=== PATIENT | female | born 1955 | race Caucasian/White ===

== ENCOUNTER 2019-05-28 09:28 | Emergency (ER) | payer OTHER ==
[2019-05-28 09:50] VITALS: BP 158/90; PULSE 60; TEMP 98.1; BMI 24.7
[2019-05-28] MEDS ORDERED: ACETAMINOPHEN 325 MG TABLET (FP) PO ONE (10:13)
[2019-05-28] MEDS ORDERED: ACETAMINOPHEN 325 MG TABLET (FP) ONE (10:19)
--- NOTE | 2019-05-28 10:28 | PDOC ---
History of Present Illness - General Chief Complaint: Pain Stated Complaint: RT JOINT PAIN Time Seen by Provider: 05/28/19 09:55 History Source: Patient Exam Limitations: Language Barrier (detonator maker ID# [id number]) Past History - Past Medical History Allergies/Adverse Reactions: Allergies Allergy/AdvReac Type Severity Reaction Status Date / Time Penicillins Allergy Rash Verified 05/28/19 09:41 Home Medications: Ambulatory Orders Clopidogrel Bisulfate [Plavix -] 75 mg PO DAILY #30 tablet 03/01/16 Cromolyn Sodium [Crolom -] 1 applic ASDIR 05/28/19 Fluticasone Prop 0.05% Nasal [Flonase -] 1 - 2 spray NS DAILY 05/28/19 Lisinopril 20 mg PO DAILY 05/28/19 Oxycodone HCl 2.5 mg PO HS PRN #12 tablet MDD 4 05/28/19 Phenytoin Na Extended [Dilantin -] 100 mg PO TID 05/28/19 Pravastatin Sodium [Pravachol] 40 mg PO HS 05/28/19 levETIRAcetam [Keppra Xr -] 750 mg PO BID 05/28/19 Cardiac Disorders: Yes HTN: Yes Seizures: Yes - Surgical History Abdominal Surgery: Yes - Immunization History Td Vaccination: Yes TDAP Vaccination: Yes Immunization Up to Date: Yes - Psycho Social/Smoking Cessation Hx Smoking Status: No Smoking History: Never smoked Number of Cigarettes Smoked Daily: 0 Hx Alcohol Use: No Drug/Substance Use Hx: No Substance Use Type: None Hx Substance Use Treatment: No *Physical Exam - Vital Signs Last Vital Signs Temp Pulse Resp BP Pulse Ox 98.1 F 60 18 158/90 98 05/28/19 09:48 05/28/19 09:48 05/28/19 09:48 05/28/19 09:48 05/28/19 09:48 - Physical Exam General Appearance: No: Apparent Distress HEENT: positive: Other (no head trauma) Neck: positive: Supple. negative: Rigid, Tender lateral, Tender midline Respiratory/Chest: positive: Other (+large area of swelling/ecchymosis along R anterior chest wall, no clavicular tenderness) Cardiovascular: positive: Regular Rhythm, Regular Rate, S1, S2. negative: Murmur Gastrointestinal/Abdominal: positive: Normal Bowel Sounds, Soft. negative: Tender, Distended, Guarding, Rebound Extremity: positive: Other (+mild TTP along R anterior shoulder, decreased ROM of R shoulder, RUE neurovascularly intact) Neurologic: positive: Fully Oriented, Alert, Normal Mood/Affect ED Treatment Course - LABORATORY CBC & Chemistry Diagram: 05/28/19 12:12 05/28/19 12:12 - RADIOLOGY Radiology Studies Ordered: Category Date Time Status CERVICAL SPINE CT W/O CONTR [CT] Stat CT Scan 05/28/19 10:[address] WITHOUT CONTRAST [CT] Stat CT Scan 05/28/19 10:[address] WITHOUT CONTRAST [CT] Stat CT Scan 05/28/19 10:14 Ordered CLAVICLE-RIGHT SIDE [RAD] Stat Radiology 05/28/19 10:13 Ordered SHOULDER-RIGHT [RAD] Stat Radiology 05/28/19 10:13 Ordered Medical Decision Making - Medical Decision Making 63 y/o F poor historian hx of HTN, HLD, seizures, CVA (on plavix) presents s/p trip and fall yesterday. Patient states she tripped in the rain last night, landing along R side with most of pain along R shoulder and R anterior chest wall. +head strike as well; unable to recall if there was LOC. States she was seen in [facility], where she was told her xrays were normal, given Tylenol and placed in sling. However, patient was not happy with care there and came here for second opinion. Denies numbness/tingling of extremities, sob, vomiting, visual/gait changes. 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 noted patient given copy of report and advised to f/u with her PCP re: this 05/28/19 15:03 Discharge - Discharge Information Problems reviewed: Yes Clinical Impression/Diagnosis: Clavicular fracture Qualifiers: Encounter type: initial encounter Clavicle location: sternal end Fracture type : closed Fracture alignment: nondisplaced Laterality: right Qualified Code(s): S42.017A - Nondisplaced fracture of sternal end of right clavicle, initial encounter for closed fracture Condition: Stable Disposition: HOME - Admission No - Additional Discharge Information Prescriptions: Oxycodone HCl 2.5 mg PO HS PRN #12 tablet MDD 4 PRN Reason: Severe Pain Prescription Drug Monitoring Program (I-STOP) results: I-STOP not reviewed - Follow up/Referral - Patient Discharge Instructions Patient Printed Discharge Instructions: DI for Clavicle Fracture-Adult Additional Instructions: Thank you for choosing [facility]. It was a pleasure taking care of you. You may take Tylenol 650 mg every 6 hours by mouth as needed for mild to moderate pain. Do not take more than 4000 mg of Tylenol in 1 day. For severe pain, you may take Oxycodone. Recommend taking this medication at night. This medication can make you constipated for which you may take over the counter Senna tablets as needed. This medication can also make you drowsy so please be cautious with driving or performing heavy physical work. You were also incidentally noted with dilation of your aorta. Please follow-up with your doctor regarding this. Return to the Emergency Department if your symptoms worsen or persist or have other concerning symptoms. Louise por elegir el [facility]. Fue un placer cuidar de ti. Puede kurtis Tylenol 650 mg cada 6 horas por va oral segn sea necesario para el dolor leve a moderado. No tome ms de 4000 mg de Tylenol en 1 da. Para el dolor intenso, puede kurtis oxicodona. Recomiendo kurtis britt medicamento por la noche. Britt medicamento puede provocarle estreimiento, por lo que puede kurtis tabletas Senna de venta jayla segn sea necesario. Britt medicamento tambin puede causar somnolencia, as que tenga cuidado al conducir o realizar trabajos fsicos pesados. Tambin se observ incidentalmente con dilatacin de allen aorta. Dinesh un seguimiento con allen mdico con respecto a esto. Regrese al departamento de emergencias si kellie sntomas empeoran o persisten o si tiene otros sntomas preocupantes. Print Language: MACEDONIAN - Post Discharge Activity
[2019-05-28] MEDS ORDERED: oxyCODONE HCL 5 MG TABLET PO ONE (12:26)
[2019-05-28 12:28] LABS: BASO % 0.4 % (0-2.0); EOS % 4.1 % (0-4.5); HEMATOCRIT 35.2 % (32.4-45.2); HEMOGLOBIN 11.9 GM/dL (10.7-15.3); LYMPH % 27.9 % (8-40); MCHC 33.9 g/dl (32.0-36.0); MEAN CELL VOLUME 97.5 fl (80-96); MEAN PLT VOLUME 8.1 fl (7.5-11.1); MONO % 6.7 % (3.8-10.2); NEUT % 60.9 % (42.8-82.8); PLATELET COUNT 164 K/MM3 (134-434); RBC 3.61 M/mm3 (3.60-5.2); RDW 12.4 % (11.6-15.6)
[2019-05-28] MEDS ORDERED: oxyCODONE HCL 5 MG TABLET ONE (12:30)
[2019-05-28 12:55] LABS: BLOOD UREA NITROGEN 15.9 mg/dL (7-18); CALCIUM 8.9 mg/dL (8.5-10.1); CREATININE 0.5 mg/dL (0.55-1.3); POTASSIUM 3.9 mmol/L (3.5-5.1)
== END 2019-05-28 15:24 | disposition home or self-care (01) ==
LOC: JERFT 09:28
DX: S42.017A Nondisplaced fracture of sternal end of right clavicle, initial encounter for closed fracture (principal); W01.0XXA Fall on same level from slipping, tripping and stumbling without subsequent striking against object, initial encounter; Y93.89 Activity, other specified; Y92.410 Unspecified street and highway as the place of occurrence of the external cause; I10 Essential (primary) hypertension; E78.5 Hyperlipidemia, unspecified; Z86.73 Personal history of transient ischemic attack (TIA), and cerebral infarction without residual deficits; Z79.01 Long term (current) use of anticoagulants; Z88.0 Allergy status to penicillin; R56.9 Unspecified convulsions
CPT/HCPCS: 36415; 70450-TC; 71250-TC; 71275-TC; 72125-TC; 73000-TC-RT-FY; 73030-TC-RT-FY; 80048; 85025; 99282-25

== ENCOUNTER 2020-04-11 13:55 | Emergency (ER) | payer OTHER ==
[2020-04-11 14:12] VITALS: BP 176/85; PULSE 66; TEMP 98.8; BMI 29.2
--- NOTE | 2020-04-11 15:41 | PDOC ---
History of Present Illness - General Chief Complaint: Syncope/Near Syncope Stated Complaint: BLOOD PRESSURE PROBLEM Time Seen by Provider: 04/11/20 14:35 - History of Present Illness Initial Comments: 66 YOF h/o seizures, htn, hld presents after seizure this am where she fell. Patient is unsure if she hit her head, she did lose consciousness, unsure if she felt dizzy or lightheaded prior to episode, unsure of confusion or difficulty speaking after episode. Also mentions that she is generally short of breath and had some chest pain earlier in the day which has since dissipated. She does currently feel dizzy and nauseas but denies vomiting. She denies fevers, chills, or recent sick contacts. Past History - Medical History Allergies/Adverse Reactions: Allergies Allergy/AdvReac Type Severity Reaction Status Date / Time Penicillins Allergy Rash Verified 04/11/20 14:10 Home Medications: Ambulatory Orders Clopidogrel Bisulfate [Plavix -] 75 mg PO DAILY #30 tablet 03/01/16 Cromolyn Sodium [Crolom -] 1 applic ASDIR 05/28/19 Fluticasone Prop 0.05% Nasal [Flonase -] 1 - 2 spray NS DAILY 05/28/19 Lisinopril 20 mg PO DAILY 05/28/19 Phenytoin Na Extended [Dilantin -] 100 mg PO TID 05/28/19 Pravastatin Sodium [Pravachol] 40 mg PO HS 05/28/19 levETIRAcetam [Keppra Xr -] 750 mg PO BID 05/28/19 oxyCODONE HCL [Oxycodone HCl] 2.5 mg PO HS PRN #12 tablet MDD 4 05/28/19 Levetiracetam [Keppra] 750 mg PO BID 14 Days #84 tablet 04/11/20 levETIRAcetam [Keppra -] 750 mg PO BID #180 tablet 04/11/20 Cardiac Disorders: Yes COPD: No HTN: Yes Seizures: Yes - Surgical History Abdominal Surgery: Yes - Reproductive History Is Patient Now?: No - Immunization History Td Vaccination: Yes TDAP Vaccination: Yes Immunization Up to Date: Yes - Psycho-Social/Smoking History Smoking Status: No Smoking History: Never smoked Have you smoked in the past 12 months: No Number of Cigarettes Smoked Daily: 0 Information on smoking cessation initiated: No - Substance Abuse Hx (Audit-C & DAST Scrn) How often the patient has a drink containing alcohol: Never Score: In Men: 4 or > Positive; In Women: 3 or > Positive: 0 Screen Result (Pos requires Nsg. Audit-10AR): Negative In the last yr the pt used illegal drug/Rx for NonMed reason: No Score: Yes response is considered Positive: 0 Screen Result (Positive result requires Nsg. DAST-10): Negative Review of Systems - Review of Systems Constitutional: Yes: See HPI HEENTM: Yes: See HPI Respiratory: Yes: See HPI Cardiac (ROS): Yes: See HPI ABD/GI: Yes: See HPI : Yes: See HPI Musculoskeletal: Yes: See HPI Integumentary: Yes: See HPI Neurological: Yes: See HPI Endocrine: Yes: See HPI Hematologic/Lymphatic: Yes: See HPI *Physical Exam - Vital Signs Last Vital Signs Temp Pulse Resp BP Pulse Ox 98.8 F 66 18 176/85 H 100 04/11/20 14:11 04/11/20 14:11 04/11/20 14:11 04/11/20 14:11 04/11/20 14:11 - Physical Exam General Appearance: Yes: Appropriately Dressed, Apparent Distress HEENT: positive: EOMI, OSBALDO, Normal ENT Inspection, Normal Voice Neck: positive: Trachea midline, Normal Thyroid Respiratory/Chest: positive: Lungs Clear, Normal Breath Sounds, Respiratory Distress Cardiovascular: positive: Regular Rhythm, Regular Rate, S1, S2 Integumentary: positive: Normal Color, Dry, Warm Neurologic: positive: supervisor photocomposition II-XII NML intact, Fully Oriented, Alert, Normal Mood/Affect, Normal Response, Motor Strength 5/5 ED Treatment Course - LABORATORY CBC & Chemistry Diagram: 04/11/20 15:20 04/11/20 15:20 Medical Decision Making - Medical Decision Making 64 YOF h/o seizures presents after seizure + fall - vitals wnl - neuro exam unremarkable - will do EKG, CXR, UA, CBC, CMP, magnesium, keppra levels. reassess - additional history received indicates patient has been non compliant with her keppra for 10 days - labs and imaging unremarkable - will give patient keppra in ed and rx for keppra and dc patient to follow up with Dr. Marco Lazar - Spoke with Dr. Lazar who is amenable to this plan Discharge - Discharge Information Problems reviewed: Yes Clinical Impression/Diagnosis: Syncope, Seizure - Admission No - Additional Discharge Information Prescriptions: Levetiracetam [Keppra] 750 mg PO BID 14 Days #84 tablet levETIRAcetam [Keppra -] 750 mg PO BID #180 tablet - Follow up/Referral Referrals: Marco Sanches [Primary Care Provider] - - Patient Discharge Instructions Patient Printed Discharge Instructions: DI for Seizure Disorder -- Adult Additional Instructions: Lo vieron en el hospital despus de sufrir marybel convulsin. Mencion que no haba tomado allen medicamento anticonvulsivo (keppra) en 10 smith. Recibiste laboratorios e imaginabas que ambos lala normales. Le dieron marybel prescripcin de 14 smith para allen medicamento anticonvulsivo. [place] finesse medicamento segn las indicaciones. Dinesh un seguimiento con allen mdico de atencin primaria. Regrese a la janeth de emergencias si allen condicin empeora, si sufre marybel convulsin adicional o marybel cada, o dolor en el pecho, falta de aire, nuseas, vmitos, fiebre o escalofros. You were seen in the hospital after you suffered a seizure. You mentioned that you had not taken your anti seizure medication (keppra) in 10 days. You received labs and imagining both of which were unremarkable. You were given a 14 day prescription for your anti seizure medication. Please take this medication as directed. Please follow up with your primary care physician. Please return to the ER if your condition worsens, if you suffer an additional seizure, or fall, or chest pain, shortness of breath, nausea, vomiting, fever or chills. - Post Discharge Activity
[2020-04-11] MEDS ORDERED: levETIRAcetam 500 MG/5 ML INJECTION VIAL IVPB ONE ×2 (16:25→16:55)
[2020-04-11 16:38] LABS: BASO % 0.4 % (0-2.0); EOS % 6.3 % (0-4.5); HEMATOCRIT 34.8 % (32.4-45.2); LYMPH % 28.1 % (8-40); MCH 34.2 pg (25.7-33.7); MCHC 34.4 g/dl (32.0-36.0); MEAN CELL VOLUME 99.4 fl (80-96); MEAN PLT VOLUME 8.7 fl (7.5-11.1); MONO % 6.2 % (3.8-10.2); PLATELET COUNT 138 K/MM3 (134-434); RBC 3.51 M/mm3 (3.60-5.2); RDW 12.7 % (11.6-15.6); WHITE BLOOD COUNT 4.9 K/mm3 (4.0-10.0)
[2020-04-11 16:56] LABS: INR 1.12 (0.83-1.09); PROTHROMBIN TIME (PATIENT) 13.2 SEC (9.7-13.0)
[2020-04-11 16:58] LABS: ACTIVATED PTT 21.4 SECONDS (25.2-36.5)
[2020-04-11 17:02] LABS: ALBUMIN 3.6 g/dl (3.4-5.0); ALK PHOS 93 U/L (45-117); ANION GAP 5 MMOL/L (8-16); BILIRUBIN,TOTAL 0.3 mg/dL (0.2-1); CALCIUM 8.2 mg/dL (8.5-10.1); CHLORIDE 104 mmol/L (98-107); CO2 31 mmol/L (21-32); CREATININE 0.5 mg/dL (0.55-1.3); GLUCOSE,RANDOM 92 mg/dL (74-106); MAGNESIUM 2.1 mg/dL (1.8-2.4); POTASSIUM 4.3 mmol/L (3.5-5.1); SGOT/AST 45 U/L (15-37); SGPT/ALT 22 U/L (13-61); SODIUM 140 mmol/L (136-145); TOT PROT 7.2 g/dl (6.4-8.2)
[2020-04-11] MEDS ORDERED: levETIRAcetam 500 MG TABLET (FP) PO ONE ×2 (17:40→18:07)
--- OUTSIDE RECORDS SUMMARY | 2020-04-11 18:37 | XMS ---
:1955 Author Organization [facility] Care Team Providers Name Role Phone ED STAFF PHYSICIAN, STAFF Unavailable Unavailable EMERGENCY SERVICE, X Unavailable Unavailable VISHNU AQUINO Unavailable Unavailable JOSHUA CARLSON Unavailable Unavailable TIFFANIE PARKS Unavailable Unavailable Berenice UNKNOWN PHYSICIANKAYCE Unavailable Unavailable Re-disclosure Warning The records that you are about to access may contain information from federally- assisted alcohol or drug abuse programs. If such information is present, then the following federally mandated warning applies: This information has been disclosed to you from records protected by federal confidentiality rules (42 CFR part 2). The federal rules prohibit you from making any further disclosure of this information unless further disclosure is expressly permitted by the written consent of the person to whom it pertains or as otherwise permitted by 42 CFR part 2. A general authorization for the release of medical or other information is NOT sufficient for this purpose. The Federal rules restrict any use of the information to criminally investigate or prosecute any alcohol or drug abuse patient.The records that you are about to access may contain highly sensitive health information, the redisclosure of which is protected by Article 27-F of the [facility] Public Health law. If you continue you may haveaccess to information: Regarding HIV / AIDS; Provided by facilities licensed or operated by the [facility] Office of Mental Health; or Provided by the [facility] Office for People With Developmental Disabilities. If such information is present, then the following [facility] mandated warning applies: This information has been disclosed to you from confidential records which are protected by state law. State law prohibits you from making any further disclosure of this information without the specific written consent of the person to whom it pertains, or as otherwise permitted by law. Any unauthorized further disclosure in violation of state law may result in a fine or usp sentence or both. A general authorization for the release of medical or other information is NOT sufficient authorization for further disclosure. Allergies and Adverse Reactions Type Description Substance Reaction Status Data Source(s ) Drug allergy Penicillins Penicillins [facility] Drug allergy Penicillins Penicillins [facility] Encounters Encounter Providers Location Date Indications Data Source(s ) Emergency Attender: MILES [facility] EM[facility]GENCY SERVICE, EDT Corpor ation XAdmitter: VISHNU AQUINO SEIZURE Outpatient Attender: TIFFANIE Torres 06/02/2019 11:47:0 0 AM [facility] OLYUTAAdmitter: TIFFANIE CORREA [facility] [place] MORENOReferrer: KAYCE MA PHYSICIAN Emergency Attender: STAFF ED STAFF H 05/27/2019 10:34:00 PM [facility] PHYSICIAN EDT - 05/28/2019 [facility] Center 07:08:00 AM EDT Patient discharged. Outpatient Attender: JOSHUA GONZALES 05/12/2019 08:39:00 AM [facility] JOSHUAAdmitter: JOSHUA [facility] CARLOS LEWISReferrer: JOSHAU LEWIS [facility] H 04/24/2019 06:05:00 PM [facility] EDT - 04/24/2019 Medical Center 11:40:00 PM EDT Patient discharged. Outpatient Attender: JOSHUA Torres 03/22/2019 12:38:00 PM [facility] JOSHUAAdmitter: JOSHUA [facility] Hospital[facility] CARLOS LEWISReferrer: JOSHUA LEWIS Immunizations Vaccine Date Status Description Data Source(s) Note that this vaccine 06/12/2016 [facility] Medical name has changed. See 02:58:00 PM EST Ce nter also Td (adult). It is not adsorbed. Note that this vaccine 07/22/2015 [facility] Medical name has changed. See 12:30:00 PM EST Ce nter also Td (adult). It is not adsorbed. Medications Medication Brand Start Product Dose Route Administrative Pharmacy St at Indications Reaction Description Data Name Date Form Instructions Instructions Source(s) Acetaminoph Acetam 999 UNK active Acetam inoph [place] en IVPB ( inophe 2020 mg en IVPB r Cou nty n IVPB 08:47: (adult) or Healt h ( 33 PM GT 50 kg Care EDT 1000 mg IVPB Corpora emily n Medication administered onsite 0.9% 0.9% 04/07/2020 1000 mL UNK active 0.9% [facility] NaCl IV NaCl IV 03:12:09 PM IV Give [facility] EDT 1000 mL; IV Care rate: Corporation Bolus over 30 minutes Medication administered onsite Keppra Keppra 04/07/2020 1000 UNK active Keppra Prince 500mg/5mL 500mg/5mL 03:12:09 PM mg 500 mg/5mL [facility] ( EDT (Levetiracetam) [facility] Injection Give Corpo ration 1000 mg IVPB Medication administered onsite Pravastatin pravastatin 40 completed [facility] Sodium 40 MG mg Tablet Me dical Oral Tablet [place] pravastatin 40 mg Tablet Unable to Unable to 999 UNK completed Unabl e to Prince Obtain/Drug Obtain/Drug MG Obtain /[facility]rett [facility] Names Unknown Names Unknown Names Care [facility] Phenytoin sodium phenytoin completed [facility] 100 MG Extended sodium extended Medical Release Oral 100 mg Capsule [place] Capsule phenytoin sodium extended 100 mg Capsule Metoprolol metoprolol 1 completed [facility] Tartrate 25 MG tartrate 25 mg Medical Oral Tablet TabletDirection [place] metoprolol s: 1 tablet tartrate 25 mg oral every TabletDirections twelve hours : 1 tablet oral every twelve hours Ibuprofen 600 MG ibuprofen 600 1 completed [facility] Oral Tablet mg Tablet, Me dical ibuprofen 600 mg Ordered By: Center Tablet, Ordered Ramses Edwards, By: Ramses MDDirections: 1 Edwards, tablet oral MDDirections: 1 three times a tablet oral day PRN pain three times a day PRN pain Cromolyn Sodium cromolyn 4 % completed [facility] Dax 40 MG/ML Drops [facility] Ophthalmic Center Solution cromolyn 4 % Drops clopidogrel 75 clopidogrel 75 completed [facility] MG Oral Tablet mg Tablet Medical clopidogrel 75 Cente r mg Tablet Lisinopril 20 MG lisinopril 20 completed [facility] Oral Tablet mg Tablet Med ical lisinopril [address] Tablet Levetiracetam levetiracetam completed [facility] 750 MG Oral 750 mg Tablet Medical Tablet Center levetiracetam 750 mg Tablet lamotrigine 25 lamoTRIgine 1 completed LaMICtal Dax MG Oral Tablet (LaMICtal) 25 Medical [Lamictal] mg Center lamoTRIgine TabletDirection (LaMICtal) 25 mg s: 1 tablet TabletDirections oral twice a : 1 tablet oral day twice a day fluticasone completed Ji nt Dax propionate 50 Medica l mcg/actuation Center spray,suspension Insurance Providers Payer name Policy type Policy ID Covered Covered libertarian's Policy P roxanne / Coverage libertarian ID relationship to Brush Inf ormation type brush JACOB [id number] SP [id number] ESSENTIAL PLAN 3 4 O JACOB O [id number] 01 [id number] ESSENTIALS-CO MMERCIAL JACOB [id number] SP [id number] HEALTH NON CAP O Problems, Conditions, and Diagnoses Code Display Name Description Problem Type Effective Dates Data Source(s) M25.611 Stiffness of STIFFNESS OF Diagnosis 06/02/2019 [facility] right shoulder, RIGHT SHOULDER, 11:47:00 AM [facility] Medical Center not elsewhere NOT ELSEWHERE classified CLASSIFIED M25.511 Pain in right PAIN IN RIGHT Diagnosis 06/02/2019 [facility] shoulder SHOULDER 11:47:00 AM EST Medical C enter Y99.9 Unspecified UNSPECIFIED Diagnosis 05/27/2019 [facility] external cause EXTERNAL CAUSE 10:34:00 PM EDT [facility] status STATUS Y92.[address] AND Diagnosis 05/27/[address] 10:34:00 PM EDT Med ical [place] [address] of occurrence of the external cause Y93.9 Activity, ACTIVITY, Diagnosis 05/27/2019 [facility] unspecified UNSPECIFIED 10:34:00 PM EDT Medical Center W19.XXXA Unspecified fall, UNSPECIFIED FALL, Diagnosis 05/27/2019 [facility] initial encounter INITIAL ENCOUNTER 10:34:00 PM EDT Medical Center S40.012A Contusion of left CONTUSION OF LEFT Diagnosis 05/27/2019 [facility] shoulder, initial SHOULDER, INITIAL 10:34:00 PM EDT Medical Center encounter ENCOUNTER G40.89 Other seizures OTHER SEIZURES Diagnosis 05/12/2019 [facility] 08:39:00 AM EDT Medical C enter Z53.21 Procedure and PROC/TRTMT NOT Diagnosis 04/24/2019 [facility] treatment not CRD OUT D/T PT LV 06:05:00 PM EDT [facility] Center carried out due BEF SEEN BY TH to patient CARE PROV leaving prior to being seen by health care provider Z04.89 ENCOUNTER FOR ENCOUNTER FOR Diagnosis 04/24/2019 [facility] EXAMINATION AND EXAMINATION AND 06:05:00 PM EDT [facility] Center OBSERVATION FOR OBSERVATION FOR OTH REASONS OTH REASONS Results ID Date Data Source LIPID.[id number] 04/28/2018 10:00:00 PM EDT [facility] Name Value Range Interpretation Description Data Sup porting Code Source(s) Document(s ) UNK < 100 <content Saint styleCode="[facility] d">LDL-Cholest [facility] mame Center </content>95 MG/DL<content styleCode="Marci lics"> (< 100 MG/DL)</conten t> Triglyceride < 150 <content Saint [Mass/volume] in styleCode="[facility] Serum or Plasma d">Triglycerid [facility] es Center </content>55 MG/DL<content styleCode="Marci lics"> (< 150 MG/DL)</conten t> UNK > 60 <content Saint styleCode="[facility] d">HDL- Medical Cholesterol Center </content>81 MG/DL<content styleCode="Marci lics"> (> 60 MG/DL)</conten t> Cholesterol -<200 <content Saint [Mass/volume] in styleCode="[facility] Serum or Plasma d">Cholesterol Medical </content>187 Center MG/DL<content styleCode="Marci lics"> (-<200 MG/DL)</conten t> ID Date Data Source HematologyRou.[id number] 04/28/2018 10:00:00 PM [facility] Name Value Range Interpretation Description Data Sup porting Code Source(s) Document(s ) Erythrocytes 4.0-5.1 Below low normal <content Saint [#/volume] in styleCode="Bold Dax Blood by ">Red Blood Medical Automated count Cell Count Center </content>3.61 MCUMM L<content styleCode="Ital ics"> (4.0-5.1 MCUMM)</content > Leukocytes 4.4-11.0 <content Saint [#/volume] in styleCode="Bold Dax Blood by ">White Blood Medical Automated count Cell Count Center </content>6.55 KCUMM<content styleCode="Ital ics"> (4.4-11.0 KCUMM)</content > Hemoglobin 12.3-16. Below low normal <content Saint [Mass/volume] in 0 styleCode="Bold Dax Blood ">Hemoglobin Medical </content>11.9 Center G/DL L<content styleCode="Ital ics"> (12.3-16.0 G/DL)</content> Hematocrit 36.0-46. Below low normal <content Saint [Volume 0 styleCode="Bold Dax Fraction] of ">Hematocrit Medical Blood by </content>34.0 Center Automated count % L<content styleCode="Ital ics"> (36.0-46.0 %)</content> Erythrocyte mean 26.0-34. <content Saint corpuscular 0 styleCode="Bold Dax hemoglobin ">Mean Medical [Entitic mass] Corposcular Center by Automated Hemoglobin count </content>33.0 PG<content styleCode="Ital ics"> (26.0-34.0 PG)</content> Erythrocyte 11.5-14. <content Saint distribution 5 styleCode="Bold Dax width [Ratio] by ">Red Cell Medical Automated count Distribution Center Width </content>11.8 %<content styleCode="Ital ics"> (11.5-14.5 %)</content> Platelet mean 8.0-11.0 <content Saint volume [Entitic styleCode="Bold Dax volume] in Blood ">Mean Platelet Medical by Automated Volume Center count </content>9.7 FL<content styleCode="Ital ics"> (8.0-11.0 FL)</content> Platelets 130-400 <content Saint [#/volume] in styleCode="Bold Dax Blood by ">Platelet Medical Automated count Count Center </content>177 KCUMM<content styleCode="Ital ics"> (130-400 KCUMM)</content > Erythrocyte mean 80.0-100 <content Saint corpuscular .0 styleCode="Bold Dax volume [Entitic ">Mean Medical volume] by Corpuscular Center Automated count Volume </content>94.2 FL<content styleCode="Ital ics"> (80.0-100.0 FL)</content> Erythrocyte mean 32.0-37. <content Saint corpuscular 0 styleCode="Bold Dax hemoglobin ">Mean Corpus. Medical concentration Hgb Center [Mass/volume] by Concentration Automated count (MCHC) </content>35.0 G/DL<content styleCode="Ital ics"> (32.0-37.0 G/DL)</content> UNK 0 <content Saint styleCode="Bold Dax ">Nucleated Red Medical Blood Cell Center </content>0.0 /100<content styleCode="Ital ics"> (0 /100)</content> UNK 0.0 <content Saint styleCode="Bold Dax ">Nucleated Red Medical Blood Cell Center Count </content>0.00 KCUMM<content styleCode="Ital ics"> (0.0 KCUMM)</content > ID Date Data Source GFR(Creatinine).[id number] 04/28/2018 10:00:00 PM EDT [facility] 0-0400 Name Value Range Interpretation Code Description Data Vernell rce(s) Supporting Document(s ) UNK > 60 <content [facility] styleCode="Bold"> Medical Cent er EGFR </content>132 GFR<content styleCode="Italic s"> (> 60 GFR)</content> ID Date Data Source Coagulation 04/28/2018 10:00:00 PM [facility] Rout.[id number] EDT Name Value Range Interpretation Description Data Sup porting Code Source(s) Document(s ) aPTT in 25.1-36. <content Saint Platelet poor 5 styleCode="Bold" Dax plasma by >Partial Medical Coagulation Thromboplastin Center assay Time </content>28.9 SEC<content styleCode="Itali cs"> (25.1-36.5 SEC)</content> UNK 9.0-13.0 <content Saint styleCode="Bold" Dax >Protime Medical </content>12.6 Center SEC<content styleCode="Itali cs"> (9.0-13.0 SEC)</content> INR in 0.80-1.2 <content Saint Platelet poor 0 styleCode="Bold" Dax plasma by >INR Medical Coagulation </content>1.11 Center assay #<content styleCode="Itali cs"> (0.80-1.20 #)</content> ID Date Data Source CardiacMarkers.[id number] 04/28/2018 10:00:00 PM EDT [facility] -0400 Name Value Range Interpretation Description Data Sup porting Code Source(s) Document(s ) Troponin 0-0.034 <content Saint I.cardiac styleCode="Bold Dax [Mass/volume ">Troponin I Medical ] in Serum </content>< Center or Plasma 0.012 NG/ML<content styleCode="Ital ics"> (0-0.034 NG/ML)</content > ID Date Data Source [facility].[id number] 04/28/2018 10:00:00 PM EDT [facility] Name Value Range Interpretation Description Data Sup porting Code Source(s) Document(s ) Sodium 137-145 <content Saint [Moles/volume] styleCode="Gloria Dax in Serum or d">Sodium Medical Plasma </content>139 Center MEQ/L<content styleCode="Marci lics"> (137-145 MEQ/L)</conten t> UNK 7-17 <content Saint styleCode="Gloria Dax d">BUN Medical </content>16 Center MG/DL<content styleCode="Marci lics"> (7-17 MG/DL)</conten t> Potassium 3.5-5.3 Below low normal <content Saint [Moles/volume] styleCode="[facility] in Serum or d">Potassium Medical Plasma </content>3.3 Center MEQ/L L<content styleCode="Marci lics"> (3.5-5.3 MEQ/L)</conten t> Glucose 74-106 <content Saint [Mass/volume] styleCode="Gloria Gutierrezs in Serum or d">Glucose Medical Plasma </content>100 Center MG/DL<content styleCode="Marci lics"> (74-106 MG/DL)</conten t> Chloride 98-107 <content Saint [Moles/volume] styleCode="[facility] in Serum or d">Chloride Medical Plasma </content>104 Center MEQ/L<content styleCode="Marci lics"> (98-107 MEQ/L)</conten t> Carbon 22-30 <content Saint dioxide, total styleCode="[facility] [Moles/volume] d">Carbon Medical in Serum or Dioxide Center Plasma </content>28 MEQ/L<content styleCode="Marci lics"> (22-30 MEQ/L)</conten t> Creatinine 0.5-1.3 <content Saint [Mass/volume] styleCode="[facility] in Serum or d">Creatinine Medical Plasma </content>0.5 Center MG/DL<content styleCode="Marci lics"> (0.5-1.3 MG/DL)</conten t> Calcium 8.4-10.2 <content Saint [Mass/volume] styleCode="[facility] in Serum or d">Calcium Medical Plasma </content>8.9 Center MG/DL<content styleCode="Marci lics"> (8.4-10.2 MG/DL)</conten t> UNK > 60 <content Saint styleCode="[facility] d">EGFR Medical </content>132 Center GFR<content styleCode="Marci lics"> (> 60 GFR)</content> ID Date Data Source Urinalysis.[id number] 04/28/2018 09:45:00 PM EDT [facility] 0 Name Value Range Interpretation Description Data Sup porting Code Source(s) Document(s ) Color of Urine YELLOW <content Saint styleCode="[facility] d">Color, Medical Urine Center </content>YELL OW <content styleCode="Marci lics"> (YELLOW )</content> UNK NEGATIVE <content Saint styleCode="Gloria Dax d">Urine Medical Bilirubin Center </content>NEGA TIVE <content styleCode="Marci lics"> (NEGATIVE )</content> Specific 1.015-1.02 Above high <content Saint gravity of 5 normal styleCode="[facility] Urine by Test d">Urine Medical strip Specific Center [place] </content>>= 1.030 H<content styleCode="Marci lics"> (1.015-1.025 )</content> UNK CLEAR <content Saint styleCode="[facility] d">Urine Medical Clarity Center </content>TRENT R <content styleCode="Marci lics"> (CLEAR )</content> Glucose NEGATIVE <content Saint [Mass/volume] styleCode="Gloria Dax in Urine by d">Urine Medical Test strip Glucose Center </content>NEGA TIVE MG/DL<content styleCode="Marci lics"> (NEGATIVE MG/DL)</conten t> Ketones NEGATIVE <content Saint [Mass/volume] styleCode="Gloria Dax in Urine by d">Urine Medical Test strip Ketone Center </content>NEGA TIVE MG/DL<content styleCode="Marci lics"> (NEGATIVE MG/DL)</conten t> Urobilinogen 0.2-1.0 <content Saint [Units/volume] styleCode="Gloria Dax in Urine by d">Urine Medical Test strip Urobilinogen Center </content>0.2 MG/DL<content styleCode="Marci lics"> (0.2-1.0 MG/DL)</conten t> Protein NEGATIVE <content Saint [Mass/volume] styleCode="Gloria Dax in Urine by d">Urine Medical Test strip Protein Center </content>NEGA TIVE MG/DL<content styleCode="Marci lics"> (NEGATIVE MG/DL)</conten t> Nitrite NEGATIVE <content Saint [Presence] in styleCode="G[facility]ia Gutierrezs Urine by Test d">Urine Medical strip Nitrite Center </content>NEGA TIVE <content styleCode="Marci lics"> (NEGATIVE )</content> Hemoglobin NEGATIVE <content Saint [Presence] in styleCode="G[facility]ia Gutierrezs Urine by Test d">Urine Blood Medical strip </content>SMAL Center L <content styleCode="Marci lics"> (NEGATIVE )</content> pH of Urine by 4.5-8.0 <content Saint Test strip styleCode="Gloria Dax d">Urine pH Medical </content>6.0 Center NM<content styleCode="Marci lics"> (4.5-8.0 NM)</content> Leukocyte NEGATIVE <content Saint esterase styleCode="[facility] Gutierrezs [Presence] in d">Urine Medical Urine by Test Leukocyte Center strip </content>NEGA TIVE <content styleCode="Marci lics"> (NEGATIVE )</content> UNK 0-3 <content Saint styleCode="Gloria Dax d">Urine Red Medical Blood Cell Center </content>0-3 HPF<content styleCode="Marci lics"> (0-3 HPF)</content> UNK 0-3 <content Saint styleCode="Gloria Dax d">Urine White Medical Blood Cell Center </content>5 - 10 HPF<content styleCode="Marci lics"> (0-3 HPF)</content> UNK NEGATIVE <content Saint styleCode="Gloria Dax d">Urine Medical Bacteria Center </content>FEW HPF<content styleCode="Marci lics"> (NEGATIVE HPF)</content> UNK NONE SEEN <content Saint styleCode="Gloria Dax d">Urine Mucus Medical </content>MODE Center RATE LPF<content styleCode="Marci lics"> (NONE SEEN LPF)</content> UNK <content Saint styleCode="Gloria Dax d">Epithelial Medical Cell Center </content>5 - 10 LPF (Reference Range: not available)<br/ > ID Date Data Source Microbiology.[id number] 04/28/2018 09:45:00 PM EDT [facility] 400 Name Value Range Interpretation Code Description Data Vernell rce(s) Supporting Document(s ) UNK <item><content [facility] styleCode="Bold">Cul Medical C enter ture Report </content>
<tabl e><tbody><tr><td>Spe cimen Number:</td><td>[id number]</td></tr><tr>< td>Sample Collection Date/Time: </td><td>04/28/2018 9:45 PM</td></tr><tr><td> Specimen Source:</td><td>URIN E</td></tr><tr><td>U rine Culture:</td><td>Col lection Plate Date: 04/28/2018 22:05 </td></tr><tr><td>Cu lture Status:</td><td>Winifred l </td></tr><tr><td>Cu lture Report:</td><td>NO FURTHER WORKUP </td></tr><tr><td>Or ganism 1:</td><td>CORYNEBAC TERIUM SPECIES </td></tr><tr><td>Or ganism 2:</td><td>COAGULASE NEGATIVE STAPHYLOCOCCUS </td></tr></tbody></ table>
<table border="2"><tbody><t r><td></td><td>1</td ><td>2</td></tr><tr> <td>Comment</td><td> </td><td></td></tr>< tr><td>Result Value</td><td>CORYNE BACTERIUM SPECIES </td><td>COAGULASE NEGATIVE STAPHYLOCOCCUS </td></tr><tr><td>Re sult Status</td><td>Final Result</td><td>Final Result</td></tr><tr> <td></td><td></td><t d></td></tr></tbody> </table></item> UNK <item><content [facility] D[facility] styleCode="Bold">Cul Medical C enter ture Status </content>
<tabl e><tbody><tr><td>Spe cimen Number:</td><td>[id number]</td></tr><tr>< td>Sample Collection Date/Time: </td><td>04/28/2018 9:45 PM</td></tr><tr><td> Specimen Source:</td><td>URIN E</td></tr><tr><td>C ulture Status:</td><td>Winifred l </td></tr><tr><td>Cu lture Report:</td><td>NO FURTHER WORKUP </td></tr><tr><td>Ur ine Culture:</td><td>Col lection Plate Date: 04/28/2018 22:05 </td></tr><tr><td>Or ganism 1:</td><td>CORYNEBAC TERIUM SPECIES </td></tr><tr><td>Or ganism 2:</td><td>COAGULASE NEGATIVE STAPHYLOCOCCUS </td></tr></tbody></ table>
<table border="2"><tbody><t r><td></td><td>1</td ><td>2</td></tr><tr> <td>Comment</td><td> </td><td></td></tr>< tr><td>Result Value</td><td>CORYNE BACTERIUM SPECIES </td><td>COAGULASE NEGATIVE STAPHYLOCOCCUS </td></tr><tr><td>Re sult Status</td><td>Final Result</td><td>Final Result</td></tr><tr> <td></td><td></td><t d></td></tr></tbody> </table></item> Procedure Social History Code Duration Value Status Description Data Source(s ) Smoking 05/27/2019 Denies Ever completed Denies Ever Smoked [facility] 11:31:00 PM EDT Smoked Medical C enter Smoking Unknown if ever completed Unknown if ever Ramone carol [facility] smoked smoked Medical Center Vital Signs ID Date Data Source UNK Name Value Range Interpretation Code Description Data Source(s) Body temperature 36.443274 36.104040 [facility] Respiratory rate 18 /min 18 /min [facility] Oxygen saturation 98 % 98 % [facility] blood [facility] by Pulse oximetry Heart rate 57 /min 57 /min [facility] Diastolic blood 75 mm[Hg] 75 mm[Hg] [facility] Systolic blood 161 mm[Hg] 161 mm[Hg] [facility] Body temperature 36.569993 36.115984 [facility] Respiratory rate 18 /min 18 /min [facility] Oxygen saturation 96 % 96 % [facility] blood [facility] by Pulse oximetry Heart rate 56 /min 56 /min [facility] Diastolic blood 90 mm[Hg] 90 mm[Hg] [facility] Systolic blood 146 mm[Hg] 146 mm[Hg] [facility] Body weight 63.586989 kg 63.552357 kg [facility] Body temperature 36.764793 36.250342 [facility] Respiratory rate 16 /min 16 /min [facility] Oxygen saturation 100 % 100 % [facility] by Pulse oximetry Heart rate 62 /min 62 /min [facility] Body height 152.725975 152.152867 cm [facility] Medical [place] Diastolic blood 89 mm[Hg] 89 mm[Hg] [facility] Systolic blood 155 mm[Hg] 155 mm[Hg] [facility] Body mass index 27.3 kg/m2 27.3 kg/m2 [facility] (BMI) [Ratio] Medical [facility] ter Body weight 66.312736 kg 66.613674 kg [facility] Measured Medical Center Body temperature 36.576424 36[address]73[address] [facility] [facility] Respiratory rate 18 /min 18 /min [facility] Oxygen saturation 98 % 98 % [facility] Stefanie osephs in Arterial blood Medical Center by Pulse oximetry Heart rate 59 /min 59 /min [facility] Body height [phone] [phone] cm [facility] Diastolic blood 91 mm[Hg] 91 mm[Hg] [facility] pressure Medical Center Systolic blood 200 mm[Hg] 200 mm[Hg] [facility] Body mass index 25.0 kg/m2 25.0 kg/m2 [facility] (BMI) [Ratio] Medical [facility] Patient Treatment Plan of Care Planned Activity Planned Date Details Description Data Source (s) Acetaminophen IVPB ( 04/07/2020 [facility] 08:47:33 PM Logic Instrument Phanfare Keppra 500mg/5mL (L 04/07/2020 [facility] 03:12:09 PM DocDep 0.9% NaCl IV 04/07/2020 [facility] nty 03:12:09 PM DocDep Ibuprofen 600 MG Oral [facility] Tablet Center Pravastatin Sodium 40 MG [facility] Oral Tablet Center Phenytoin sodium 100 MG [facility] Extended Release Oral Center Capsule Metoprolol Tartrate 25 MG [facility] Oral Tablet Center Lisinopril 20 MG Oral [facility] Tablet Center Levetiracetam 750 MG Oral [facility] Tablet [place] lamotrigine 25 MG Oral [facility] Tablet [Lamictal] Center fluticasone propionate 50 [facility]/actuation Center spray,suspension Cromolyn Sodium 40 MG/ML [facility] Ophthalmic Solution Center clopidogrel 75 MG Oral [facility]
--- NOTE | 2020-04-11 18:41 | PDOC ---
Documentation entered by Zahraa Louie SCRIBE, acting as scribe for Jason Goyal MD. Jason Goyal MD: This documentation has been prepared by the Jacy anderson Brenda, SCRIBE, under my direction and personally reviewed by me in its entirety. I confirm that the documentation accurately reflects all work, treatment, procedures, and medical decision making performed by me. Attending Attestation - Resident Resident Name: Ochoa Kerr - ED Attending Attestation I have performed the following: I have examined & evaluated the patient, The case was reviewed & discussed with the resident, I agree w/resident's findings & plan, Exceptions are as noted - HPI HPI: 04/11/20 16:29 The patient is a 66 year old female with a significant PMH of HTN, HLD who presents to the ED s/p fall after seizure. Patient endorses feeling generally out of breath and experienced chest pain earlier in the day. Patient is not sure if she hit her head nor lost consciousness. Patient is unaware of any preceding symptoms. Endorses feeling dizzy and nauseas. Allergies: Penicillins - Physicial Exam PE: 04/11/20 18:41 Vitals: Triage Vital signs reviewed General Appearance: No acute distress, well nourished well developed, Head: Atraumatic, Eyes: Pupils equal reactive round, extraocular movement intact Cardiac: Regular rate and rhythym, no murmurs, no rubs, no gallops, Lungs: Clear to auscultation bilateral, good air movement bilaterally, Abdomen: Soft, non distended, normal bowel sounds, non tender to palpation Extremities: Full range of motion to all extremities, no cyanosis, clubbing, or edema Skin: Warm and dry, no rashes or lesions, no rash, no petechiae Neuro: AOX3; cranial Nerves 2-12 grossly intact, strength intact to all extremities, sensation intact to all extremities, gait normal Psych: Normal mood, normal affect - Medical Decision Making 04/13/20 16:52 66 years old with past medical history significant for seizures managed on Keppra stopped taking medication 1 week ago presents to the ED with seizure. No longer postictal. Head CT and labs within normal limits Given clear explanation for seizure patient back to baseline mental status with no acute findings after discussing case with patient's primary care provider decision made to load patient with Keppra discharge home with renewal of her Keppra prescription and have patient follow-up with neurology this week Findings, the need for follow-up and strict return instructions discussed with patient. Heart Score/ECG Review - ECG Impressions Comment:: 04/13/20 16:53 EKG performed at 1459 demonstrates normal sinus rhythm no ST elevations no T wave inversions Interpreted by me. Discharge - Discharge Information Problems reviewed: Yes Clinical Impression/Diagnosis: Seizure Qualifiers: Convulsion type: unspecified Qualified Code(s): R56.9 - Unspecified convulsions - Additional Discharge Information Prescriptions: Levetiracetam [Keppra] 750 mg PO BID 14 Days #84 tablet levETIRAcetam [Keppra -] 750 mg PO BID #180 tablet - Follow up/Referral Referrals: Marco Sanches [Primary Care Provider] - - Patient Discharge Instructions Patient Printed Discharge Instructions: DI for Seizure Disorder -- Adult Additional Instructions: Lo vieron en el hospital despus de sufrir marybel convulsin. Mencion que no haba tomado allen medicamento anticonvulsivo (keppra) en 10 smith. Recibiste laboratorios e imaginabas que ambos lala normales. Le dieron marybel prescripcin de 14 smith para allen medicamento anticonvulsivo. [place] finesse medicamento segn las indicaciones. Dinesh un seguimiento con allen mdico de atencin primaria. Regrese a la janeth de emergencias si allen condicin empeora, si sufre marybel convulsin adicional o marybel cada, o dolor en el pecho, falta de aire, nuseas, vmitos, fiebre o escalofros. You were seen in the hospital after you suffered a seizure. You mentioned that you had not taken your anti seizure medication (keppra) in 10 days. You received labs and imagining both of which were unremarkable. You were given a 14 day prescription for your anti seizure medication. Please take this medication as directed. Please follow up with your primary care physician. Please return to the ER if your condition worsens, if you suffer an additional seizure, or fall, or chest pain, shortness of breath, nausea, vomiting, fever or chills. - Post Discharge Activity
--- NOTE | 2020-04-12 09:07 | EKG ---
Test Reason : Blood Pressure : / mmHG Vent. Rate : 061 BPM Atrial Rate : 061 BPM P-R Int : 160 ms QRS Dur : 086 ms QT Int : 430 ms P-R-T Axes : -21 000 048 degrees QTc Int : 432 ms NORMAL SINUS RHYTHM NONSPECIFIC T WAVE ABNORMALITY ABNORMAL ECG WHEN COMPARED WITH ECG OF 28-FEB-2016 10:56, NONSPECIFIC T WAVE ABNORMALITY, WORSE IN LATERAL LEADS Confirmed by MD DANIEL, DONNA ([id number]) on 04/12/2020 9:07:07 AM Referred By: Confirmed By:DONNA SANCHEZ MD
== END 2020-04-11 19:18 | disposition home or self-care (01) ==
LOC: JER 13:55
DX: R56.9 Unspecified convulsions (principal)
CPT/HCPCS: 36415; 70450-TC; 71045-TC-FY; 73070-TC-RT-FY; 80053; 80177; 83735; 84484; 85025; 85610; 85730; 93005; 93010; 99283-25

== ENCOUNTER 2021-10-30 10:43 | Observation (INO) | payer OTHER ==
[2021-10-30] MEDS ORDERED: ASPIRIN 81 MG CHEWABLE TABLETS PO ONE (11:28)
[2021-10-30] MEDS ORDERED: METOCLOPRAMIDE HCL INJECTION 10 MG/2 ML VIAL IVPUSH ONE (11:34)
[2021-10-30] MEDS ORDERED: ACETAMINOPHEN 1000 MG/100 ML BAG IVPB ONE (11:35)
[2021-10-30] MEDS ORDERED: SODIUM CHLORIDE 0.9% 500 ML INFUS.BAG IV ONE (11:35)
[2021-10-30] MEDS ORDERED: METOCLOPRAMIDE HCL INJECTION 10 MG/2 ML VIAL ONE (11:59)
[2021-10-30] MEDS ORDERED: ACETAMINOPHEN INJECTION 100 ML IVPB ONE (11:59)
[2021-10-30 12:15] LABS: BASO % 0.3 % (0-2.0); EOS % 5.4 % (0-4.5); HEMATOCRIT 32.7 % (32.4-45.2); HEMOGLOBIN 11.1 GM/dL (10.7-15.3); LYMPH % 37.2 % (8-40); MCH 32.5 pg (25.7-33.7); MCHC 33.9 g/dl (32.0-36.0); MEAN CELL VOLUME 95.9 fl (80-96); MEAN PLT VOLUME 8.4 fl (7.5-11.1); MONO % 7.8 % (3.8-10.2); NEUT % 49.3 % (42.8-82.8); PLATELET COUNT 159 10^3/uL (134-434); RBC 3.41 M/mm3 (3.60-5.2); RDW 12.8 % (11.6-15.6); WHITE BLOOD COUNT 5.1 K/mm3 (4.0-10.0)
[2021-10-30 12:19] LABS: INR 1.15 (0.83-1.09); PROTHROMBIN TIME (PATIENT) 13.3 SEC (9.7-13.0)
[2021-10-30 12:22] LABS: ACTIVATED PTT 29.4 SECONDS (25.2-36.5)
[2021-10-30 12:29] LABS: CALCIUM 8.5 mg/dL (8.5-10.1)
[2021-10-30 12:30] LABS: ALBUMIN 3.7 g/dl (3.4-5.0)
[2021-10-30 12:33] LABS: CREATININE 0.6 mg/dL (0.55-1.3)
[2021-10-30 12:34] LABS: BILIRUBIN,TOTAL 0.4 mg/dL (0.2-1); TOT PROT 6.7 g/dl (6.4-8.2)
[2021-10-30] MEDS ORDERED: levETIRAcetam 500 MG/5 ML INJECTION VIAL IVPB ONE ×2 (12:51→12:56)
[2021-10-30] MEDS ORDERED: hydrALAZINE HCL 20 MG/ML VIAL IVPUSH ONE (12:51)
[2021-10-30] MEDS ORDERED: PHENYTOIN SODIUM 100 MG/2 ML VIAL IVPB ONE (12:52)
[2021-10-30] MEDS ORDERED: hydrALAZINE HCL 20 MG/ML VIAL ONE (12:56)
[2021-10-30] MEDS ORDERED: SODIUM CHLORIDE IVPB ONE (13:30)
[2021-10-30] MEDS ORDERED: PHENYTOIN SODIUM IVPB ONE (13:30)
[2021-10-30 16:04] LABS: EPI CELLS 14 /uL (0-25.1); HYALINE CASTS 0 /uL (0-3.1); URINE APPEARANCE CLEAR; URINE BACTERIA 182 /uL (0-1359); URINE BILIRUBIN NEGATIVE (NEGATIVE); URINE COLOR YELLOW; URINE GLUCOSE (UA) NEGATIVE (NEGATIVE); URINE KETONE NEGATIVE (NEGATIVE); URINE LEUK ESTERASE TRACE (NEGATIVE); URINE NITRITE NEGATIVE (NEGATIVE); URINE PROTEIN NEGATIVE (NEGATIVE); URINE RBC 3 /uL (0-23.9); URINE UROBILINOGEN 0.2 mg/dL (0.2-1.0); URINE WBC 42 /uL (0-25.8)
[2021-10-30] MEDS ORDERED: ACETAMINOPHEN 1000 MG/100 ML BAG IVPB PRN (18:51)
[2021-10-30] MEDS ORDERED: ATORVASTATIN CA 10 MG TABLET (FP) PO SCH (22:00)
[2021-10-30] MEDS ORDERED: PHENYTOIN NA EXTENDED 100 MG CAPSULE (FP) ONE (23:31)
[2021-10-30] MEDS ORDERED: ATORVASTATIN CA 10 MG TABLET (FP) ONE (23:31)
[2021-10-30] MEDS: PHENYTOIN NA EXTENDED 100 MG CAPSULE (FP) PO SCH (23:34)
[2021-10-31] MEDS: levETIRAcetam XR 750 MG TAB PO SCH ×2 (00:11→10:41)
[2021-10-31 03:53] VITALS: BMI 28.9
[2021-10-31] MEDS: PHENYTOIN NA EXTENDED 100 MG CAPSULE (FP) PO SCH ×2 (06:37→14:24)
[2021-10-31 07:31] LABS: BASO % 0.4 % (0-2.0); HEMATOCRIT 31.8 % (32.4-45.2); HEMOGLOBIN 11.1 GM/dL (10.7-15.3); LYMPH % 35.4 % (8-40); MCH 33.1 pg (25.7-33.7); MCHC 34.8 g/dl (32.0-36.0); MEAN CELL VOLUME 95.3 fl (80-96); MEAN PLT VOLUME 8.4 fl (7.5-11.1); MONO % 6.8 % (3.8-10.2); NEUT % 44.4 % (42.8-82.8); PLATELET COUNT 153 10^3/uL (134-434); RBC 3.34 M/mm3 (3.60-5.2); RDW 12.8 % (11.6-15.6)
[2021-10-31 07:43] LABS: ALBUMIN 3.5 g/dl (3.4-5.0); BLOOD UREA NITROGEN 11.9 mg/dL (7-18); CALCIUM 8.2 mg/dL (8.5-10.1); MAGNESIUM 2.2 mg/dL (1.8-2.4)
[2021-10-31 07:46] LABS: CREATININE 0.5 mg/dL (0.55-1.3); PHOSPHOROUS 3.6 mg/dL (2.5-4.9)
[2021-10-31 07:48] LABS: BILIRUBIN,TOTAL 0.6 mg/dL (0.2-1); TOT PROT 6.3 g/dl (6.4-8.2)
[2021-10-31] MEDS ORDERED: CLOPIDOGREL BISULFATE 75 MG TABLET (FP) PO SCH (10:00)
[2021-10-31] MEDS ORDERED: LISINOPRIL 20 MG TABLET PO SCH (10:00)
[2021-10-31] MEDS ORDERED: ENOXAPARIN NA (PORCINE) 40 MG/0.4 ML DISP.SYRIN SQ SCH (10:00)
[2021-10-31 18:15] VITALS: BP 141/76; PULSE 62; TEMP 98.4
== END 2021-10-31 18:46 | disposition home or self-care (01) ==
LOC: JER 10:43 → JERBED 15:32 → J4W 23:46
PROVIDERS: ADMIT Internal Medicine; ATTEND Internal Medicine
PROC: 3E033NZ Introduction of Analgesics, Hypnotics, Sedatives into Peripheral Vein, Percutaneous Approach (ICD-10-PCS; principal; 2021-10-30)
PROC: 3E023GC Introduction of Other Therapeutic Substance into Muscle, Percutaneous Approach (ICD-10-PCS; 2021-10-30)
PROC: 3E0337Z Introduction of Electrolytic and Water Balance Substance into Peripheral Vein, Percutaneous Approach (ICD-10-PCS; 2021-10-30)
DX: I16.0 Hypertensive urgency (principal); Z91.14 Patient's other noncompliance with medication regimen; I25.10 Atherosclerotic heart disease of native coronary artery without angina pectoris; I10 Essential (primary) hypertension; R56.9 Unspecified convulsions; I69.351 Hemiplegia and hemiparesis following cerebral infarction affecting right dominant side; E78.5 Hyperlipidemia, unspecified; Z88.0 Allergy status to penicillin
CPT/HCPCS: 36415; 70450-TC; 71045-TC-FY; 72125-TC; 80053; 80177; 80185; 81003; 83605; 83735; 84100; 84484; 85025; 85610; 85730; 93005; 93010; 93306-TC; 96365; 96372; 96375; 99285-25; C9803-CS; G0378; U0003; U0005

== ENCOUNTER 2022-03-28 11:26 | Emergency (ER) | payer SELFPAY ==
[2022-03-28 11:31] VITALS: RESP 18; TEMP 98.3; BMI 25.6
[2022-03-28] MEDS ORDERED: ACETAMINOPHEN 325 MG TABLET (FP) PO ONE (13:09)
[2022-03-28] MEDS ORDERED: ACETAMINOPHEN 325 MG TABLET (FP) ONE (13:14)
[2022-03-28 14:10] LABS: BASO % 0.6 % (0-2.0); EOS % 4.9 % (0-4.5); HEMATOCRIT 36.7 % (32.4-45.2); LYMPH % 35.9 % (8-40); MCH 32.5 pg (25.7-33.7); MCHC 32.8 g/dl (32.0-36.0); MEAN CELL VOLUME 98.9 fl (80-96); MEAN PLT VOLUME 7.8 fl (7.5-11.1); MONO % 7.5 % (3.8-10.2); NEUT % 51.1 % (42.8-82.8); PLATELET COUNT 187 10^3/uL (134-434); RBC 3.71 M/mm3 (3.60-5.2); RDW 13.8 % (11.6-15.6); WHITE BLOOD COUNT 5.3 K/mm3 (4.0-10.0)
[2022-03-28 14:30] LABS: CALCIUM 8.5 mg/dL (8.5-10.1)
[2022-03-28 14:31] LABS: ALBUMIN 3.5 g/dl (3.4-5.0); BLOOD UREA NITROGEN 16.6 mg/dL (7-18); MAGNESIUM 2.1 mg/dL (1.8-2.4)
[2022-03-28 14:34] LABS: CREATININE 0.6 mg/dL (0.55-1.3)
[2022-03-28 14:36] LABS: BILIRUBIN,TOTAL 0.4 mg/dL (0.2-1); TOT PROT 7.1 g/dl (6.4-8.2)
[2022-03-28 14:52] LABS: EPI CELLS >36 /uL (0-25.1); HYALINE CASTS 1 /uL (0-3.1); URINE APPEARANCE CLEAR; URINE BACTERIA 1329 /uL (0-1359); URINE BILIRUBIN NEGATIVE (NEGATIVE); URINE COLOR YELLOW; URINE GLUCOSE (UA) NEGATIVE (NEGATIVE); URINE KETONE NEGATIVE (NEGATIVE); URINE LEUK ESTERASE 1+ (NEGATIVE); URINE NITRITE NEGATIVE (NEGATIVE); URINE PROTEIN NEGATIVE (NEGATIVE); URINE RBC 23 /uL (0-23.9); URINE UROBILINOGEN 0.2 mg/dL (0.2-1.0); URINE WBC 26 /uL (0-25.8)
[2022-03-28 15:14] LABS: INR 1.14 (0.83-1.09); PROTHROMBIN TIME (PATIENT) 13.1 SEC (9.7-13.0)
[2022-03-28] MEDS ORDERED: METOCLOPRAMIDE HCL INJECTION 10 MG/2 ML VIAL IVPB ONE (16:11)
[2022-03-28] MEDS ORDERED: SODIUM CHLORIDE 1,000 ML IV STA (16:12)
[2022-03-28] MEDS ORDERED: METOCLOPRAMIDE HCL INJECTION 10 MG/2 ML VIAL ONE (16:25)
[2022-03-28] MEDS ORDERED: levETIRAcetam 500 MG TABLET (FP) PO ONE ×2 (18:57→19:15)
[2022-03-28 19:03] VITALS: BP 165/82; PULSE 78
== END 2022-03-28 19:36 | disposition home or self-care (01) ==
LOC: JER 11:26
PROC: 3E033NZ Introduction of Analgesics, Hypnotics, Sedatives into Peripheral Vein, Percutaneous Approach (ICD-10-PCS; principal; 2022-03-28)
PROC: 3E0337Z Introduction of Electrolytic and Water Balance Substance into Peripheral Vein, Percutaneous Approach (ICD-10-PCS; 2022-03-28)
DX: R56.9 Unspecified convulsions (principal)
CPT/HCPCS: 0241U-QW; 36415; 70450-TC; 72125-TC; 80053; 80185; 81003; 82962; 83605; 83735; 84484; 85025; 85610; 93005; 93010; 99285-25

== ENCOUNTER 2022-11-19 22:27 | Inpatient (IN) | payer OTHER ==
[2022-11-19] MEDS ORDERED: ACETAMINOPHEN 1000 MG/100 ML BAG IVPB ONE (22:48)
[2022-11-19] MEDS ORDERED: FAMOTIDINE 20 MG/50 ML IVPB 20 MG/50 ML MG IVPB ONE ×2 (22:48→23:33)
[2022-11-19] MEDS ORDERED: MAG HYDROX/AL HYDROX/SIMETH -MYLANTA- ORAL SUSPENSION PO ONE (22:48)
[2022-11-19 23:14] LABS: BASO % 0.6 % (0-2.0); EOS % 12.4 % (0-4.5); HEMOGLOBIN 10.7 GM/dL (10.7-15.3); LYMPH % 39.5 % (8-40); MCH 33.8 pg (25.7-33.7); MCHC 34.5 g/dl (32.0-36.0); MEAN CELL VOLUME 97.8 fl (80-96); MEAN PLT VOLUME 7.6 fl (7.5-11.1); MONO % 6.5 % (3.8-10.2); PLATELET COUNT 210 10^3/uL (134-434); RBC 3.17 M/mm3 (3.60-5.2); RDW 12.7 % (11.6-15.6); WHITE BLOOD COUNT 6.4 K/mm3 (4.0-10.0)
[2022-11-19 23:17] LABS: INR 1.18 (0.83-1.09); PROTHROMBIN TIME (PATIENT) 13.7 SEC (9.7-13.0)
[2022-11-19 23:20] LABS: ACTIVATED PTT 43.3 SECONDS (25.2-36.5)
[2022-11-19] MEDS ORDERED: MAG HYDROX/AL HYDROX/SIMETH 30 ML UNIT-DOSE CUP ONE (23:33)
[2022-11-19] MEDS ORDERED: ACETAMINOPHEN INJECTION 100 ML IVPB ONE (23:33)
[2022-11-19 23:36] LABS: CALCIUM 8.7 mg/dL (8.5-10.1)
[2022-11-19 23:37] LABS: ALBUMIN 3.7 g/dl (3.4-5.0)
[2022-11-19 23:40] LABS: CREATININE 0.7 mg/dL (0.55-1.3)
[2022-11-19 23:41] LABS: BILIRUBIN,TOTAL 0.3 mg/dL (0.2-1)
[2022-11-19 23:42] LABS: TOT PROT 7.1 g/dl (6.4-8.2)
[2022-11-20 05:00] VITALS: BMI 26.9
[2022-11-20] MEDS: LISINOPRIL 20 MG TABLET PO SCH (09:19)
[2022-11-20] MEDS: levETIRAcetam XR 750 MG TAB PO SCH ×2 (09:19→21:52)
[2022-11-20] MEDS: CHLORTHALIDONE 25 MG TABLET PO SCH (09:20)
[2022-11-20] MEDS: CLOPIDOGREL BISULFATE 75 MG TABLET (FP) PO SCH (09:20)
[2022-11-20] MEDS: PANTOPRAZOLE SODIUM 40 MG VIAL IVPUSH SCH (09:20)
[2022-11-20] MEDS: ACETAMINOPHEN 500 MG TABLET (FP) PO PRN ×2 (09:33→17:11)
[2022-11-20 11:50] LABS: CALCIUM 9.2 mg/dL (8.5-10.1)
[2022-11-20 11:51] LABS: BLOOD UREA NITROGEN 18.4 mg/dL (7-18); MAGNESIUM 2.2 mg/dL (1.8-2.4)
[2022-11-20 11:52] LABS: BASO % 0.4 % (0-2.0); EOS % 12.1 % (0-4.5); HEMATOCRIT 31.5 % (32.4-45.2); HEMOGLOBIN 10.9 GM/dL (10.7-15.3); LYMPH % 28.8 % (8-40); MCH 33.7 pg (25.7-33.7); MCHC 34.8 g/dl (32.0-36.0); MEAN CELL VOLUME 96.9 fl (80-96); MEAN PLT VOLUME 8.3 fl (7.5-11.1); MONO % 6.9 % (3.8-10.2); NEUT % 51.8 % (42.8-82.8); PLATELET COUNT 207 10^3/uL (134-434); RBC 3.25 M/mm3 (3.60-5.2); RDW 12.7 % (11.6-15.6); WHITE BLOOD COUNT 5.2 K/mm3 (4.0-10.0)
[2022-11-20 11:54] LABS: CREATININE 0.7 mg/dL (0.55-1.3)
[2022-11-20] MEDS ORDERED: FUROSEMIDE 40 MG/4 ML INJECTABLE VIAL IVPUSH ONE (12:50)
[2022-11-20 13:51] LABS: EPI CELLS >36 /uL (0-25.1); HYALINE CASTS 1 /uL (0-3.1); URINE APPEARANCE CLEAR; URINE BACTERIA 319 /uL (0-1359); URINE BILIRUBIN NEGATIVE (NEGATIVE); URINE COLOR YELLOW; URINE GLUCOSE (UA) NEGATIVE (NEGATIVE); URINE KETONE NEGATIVE (NEGATIVE); URINE LEUK ESTERASE NEGATIVE (NEGATIVE); URINE NITRITE NEGATIVE (NEGATIVE); URINE PROTEIN NEGATIVE (NEGATIVE); URINE RBC 23 /uL (0-23.9); URINE UROBILINOGEN 0.2 mg/dL (0.2-1.0); URINE WBC 55 /uL (0-25.8)
[2022-11-20 14:01] LABS: N-TERMINAL BNP 137.3 pg/ml (5-125)
[2022-11-20] MEDS ORDERED: ROSUVASTATIN CA 10 MG TABLET PO SCH (22:00)
[2022-11-21] MEDS ORDERED: ROSUVASTATIN CA 10 MG TABLET PO SCH (08:21)
[2022-11-21] MEDS: levETIRAcetam XR 750 MG TAB PO SCH ×3 (08:24→21:40)
[2022-11-21] MEDS ORDERED: REGADENOSON 0.4 MG/5 ML PRE-FILLED SYRINGE IVPUSH ONE ×2 (09:27→09:45)
[2022-11-21] MEDS: LISINOPRIL 20 MG TABLET PO SCH (12:38)
[2022-11-21] MEDS: CHLORTHALIDONE 25 MG TABLET PO SCH (12:38)
[2022-11-21] MEDS: PANTOPRAZOLE SODIUM 40 MG VIAL IVPUSH SCH (12:38)
[2022-11-21] MEDS: CLOPIDOGREL BISULFATE 75 MG TABLET (FP) PO SCH (12:39)
[2022-11-21] MEDS: ACETAMINOPHEN 500 MG TABLET (FP) PO PRN (13:22)
[2022-11-22 09:02] VITALS: BP 120/72; PULSE 68; RESP 18; TEMP 98.6
[2022-11-22] MEDS: levETIRAcetam XR 750 MG TAB PO SCH (09:18)
[2022-11-22] MEDS: PANTOPRAZOLE SODIUM 40 MG VIAL IVPUSH SCH (09:18)
[2022-11-22] MEDS: LISINOPRIL 20 MG TABLET PO SCH (09:19)
[2022-11-22] MEDS: CLOPIDOGREL BISULFATE 75 MG TABLET (FP) PO SCH (09:19)
[2022-11-22] MEDS: CHLORTHALIDONE 25 MG TABLET PO SCH (11:14)
== END 2022-11-22 11:20 | disposition home or self-care (01) | DRG 198 ==
LOC: JER 22:27 → JERBED 23:49 → J4W 11-20 05:49 → OBSVTOIN 11-21 20:26
PROVIDERS: ADMIT Student in an Organized Health Care Education/Training Program; ATTEND Family Medicine
DX: R07.9 Chest pain, unspecified (principal); R51.9 Headache, unspecified; I25.10 Atherosclerotic heart disease of native coronary artery without angina pectoris; R56.9 Unspecified convulsions; I10 Essential (primary) hypertension; R06.00 Dyspnea, unspecified; I69.351 Hemiplegia and hemiparesis following cerebral infarction affecting right dominant side
CPT/HCPCS: 36415; 70450-TC; 71045-TC-FY; 71275-TC; 78452-TC; 80048; 80053; 80061; 80177; 80185; 81003; 82728; 83036; 83690; 83735; 83880; 84443; 84484; 85025; 85610; 85730; 87086; 93005; 93010; 93017; 99285-25; A9502; C9803-CS; G0378; J2785; Q9967; U0003; U0005

== ENCOUNTER 2024-03-18 19:33 | Emergency (ER) | payer OTHER ==
[2024-03-18 19:43] VITALS: BP 102/67; PULSE 62; RESP 18; TEMP 97.9; BMI 30.5
[2024-03-18] MEDS ORDERED: ACETAMINOPHEN INJECTION 100 ML IVPB ONE (20:44)
[2024-03-18] MEDS ORDERED: predniSONE 20 MG TABLET (UD) ONE (20:44)
[2024-03-18] MEDS ORDERED: FAMOTIDINE 20 MG/50 ML IVPB 20 MG/50 ML MG IVPB ONE (20:45)
[2024-03-18] MEDS: predniSONE 20 MG TABLET (UD) PO ONE (21:05)
[2024-03-18] MEDS: ACETAMINOPHEN 1000 MG/100 ML BAG IVPB ONE (21:05)
[2024-03-18] MEDS: FAMOTIDINE 20 MG/50 ML IVPB 20 MG/50 ML MG IVPB ONE (21:05)
[2024-03-18] MEDS: SODIUM CHLORIDE 1,000 ML IV STA (21:06)
== END 2024-03-18 22:47 | disposition home or self-care (01) ==
LOC: JER 19:33
PROC: 3E033GC Introduction of Other Therapeutic Substance into Peripheral Vein, Percutaneous Approach (ICD-10-PCS; principal; 2024-03-18)
PROC: 3E033NZ Introduction of Analgesics, Hypnotics, Sedatives into Peripheral Vein, Percutaneous Approach (ICD-10-PCS; 2024-03-18)
PROC: 3E033GC Introduction of Other Therapeutic Substance into Peripheral Vein, Percutaneous Approach (ICD-10-PCS; 2024-03-18)
PROC: 3E033GC Introduction of Other Therapeutic Substance into Peripheral Vein, Percutaneous Approach (ICD-10-PCS; 2024-03-18)
DX: T78.40XA Allergy, unspecified, initial encounter (principal)
CPT/HCPCS: 99284-25; J0131